=== PATIENT | male | born 1995 | race Caucasian/White ===

== ENCOUNTER 2020-02-06 13:31 | Emergency (ER) | payer OTHER, SELFPAY ==
--- NOTE | 2020-02-06 13:37 | ED.URI ---
HPI - URI/Sore Throat General Chief Complaint: Upper Respiratory Infection Stated Complaint: allergies/mucus/yellowish Time Seen by Provider: 02/06/20 13:50 Source: patient and RN notes reviewed Mode of arrival: ambulatory Limitations: no limitations History of Present Illness HPI Narrative: 24-year-old male presents with concern for 4-day history of postnasal drainage, rhinorrhea, occasional cough. Reports taking Mucinex and Claritin. Denies fever, chills, body aches, sweats, sore throat, nausea, vomiting, diarrhea. MD elicited complaint: nasal congestion Related Data Home Medications Medication Instructions Recorded Confirmed famotidine 10 mg PO DAILY 02/06/20 02/06/20 loratadine [Claritin] 10 mg PO DAILY 02/06/20 02/06/20 Allergies Allergy/AdvReac Type Severity Reaction Status Date / Time No Known Allergies Allergy Verified 02/06/20 13:54 Review of Systems Review of Systems: Narrative: CONSTITUTIONAL: Denies malaise, chills, sweats, or fever. EYES: Denies visual changes, redness, or discharge. ENT: Reports rhinorrhea, congestion. Denies sinus pain, otalgia and sore throat. CARDIOVASCULAR: Denies chest pain, palpitations, or edema. RESPIRATORY: Reports cough. Denies dyspnea. GASTROINTESTINAL: Denies abdominal pain, nausea, vomiting, diarrhea SKIN: Denies rash or itching. MUSCULOSKELETAL: Denies myalgia. NEUROLOGIC: Denies headache. All systems reviewed & are unremarkable except as noted in HPI and below PMFSH Past Medical History Medical History (Updated 02/06/20 @ 14:02 by Steffany Bradford NP) Aspergers' syndrome GERD (gastroesophageal reflux disease) Social History Social History Gender identity (if verbalized by the patient): Male Comments At time of signature, agree with nursing past medical, surgical, social and family history. There is no relevant family history pertinent to the presenting complaint Exam Narrative: Exam Narrative: GENERAL: Well-appearing, well-nourished, and in no acute distress. HEAD: Normocephalic EYES: PERRLA, conjunctivae clear ENT: Nares clear, turbinates edematous and erythematous, clear discharge. Mucous membranes moist. TM pearly moreno with dull light reflex bilaterally; no tragal tenderness. Oropharynx not erythematous without lesions. Tonsils not enlarged and without exudate, no drooling, no hoarseness, no trismus, uvula midline. NECK: Supple. No lymphadenopathy CHEST: Clear to auscultation, breath sounds equal. No wheezing, rhonchi, rales, or stridor. No respiratory distress, speaks in full sentences. HEART: Regular rate and rhythm. No murmur heard. SKIN: Warm, dry, no rash. NEURO: Alert and oriented x3. PSYCH: Normal mood and affect Course Course Emergency Course: Patient is aware of diagnosis, understands and agrees to treatment plan. Anticipatory guidance given. Patient agrees to follow-up as directed and is aware of reasons to seek care at the emergency department. Portions of this record may have been created with voice recognition software Vital Signs Vital signs: Vital Signs Temperature 98.6 F 02/06/20 13:42 Pulse Rate 97 02/06/20 13:42 Respiratory Rate 18 02/06/20 13:42 Blood Pressure 150/73 H 02/06/20 13:42 Pulse Oximetry 99 02/06/20 13:42 Temperature 98.6 F 02/06/20 13:42 Pulse Rate 97 02/06/20 13:42 Respiratory Rate 18 02/06/20 13:42 Blood Pressure 150/73 H 02/06/20 13:42 Pulse Oximetry 99 02/06/20 13:42 Reviewed. Pt has been instructed to follow up with his primary care provider within the next week regarding his elevated blood pressure today. MDM - URI/Sore Throat MDM Narrative Medical decision making narrative: Differential diagnosis considered: Strep pharyngitis, allergic rhinitis, upper respiratory tract infection, sinusitis, rhinosinusitis, nasopharyngitis. viral pharyngitis, otitis media, otitis externa, pneumonia, bronchitis, viral cough syndrome, viral syndrome, and influenza. Exam findings show no acute
[2020-02-06 13:42] VITALS: BP 150/73; PULSE 97; RESP 18; TEMP 37; O2SAT 99
== END 2020-02-06 14:05 | disposition home or self-care (01) ==
PROVIDERS: Emergency Provider Nurse Practitioner
DX: J06.9 Acute upper respiratory infection, unspecified (principal); F84.5 Asperger's syndrome; K21.9 Gastro-esophageal reflux disease without esophagitis
CPT/HCPCS: 99211; G0463